=== PATIENT | female | born 1970 | race Asian ===

== ENCOUNTER 2017-12-29 19:07 | Emergency (ER) | payer OTHER ==
[~2017-12-29] VITALS: Ht 162.6 cm; Wt 62.1 kg
[~2017-12-29 19:07] MED LIST: ASPI-989 PO; CEVI30CA4 PO; HYDR200T80 PO; LISI2.5T48 PO; SERT50TA12 PO; SIMV40TA5 PO
[2017-12-29 19:14] VITALS: BP_SYST 139
[2017-12-29] MEDS ORDERED: ASPIRIN 81 MG TAB.CHEW PO ONE (19:15)
[2017-12-29 19:37] LABS: BASOPHILS # (AUTO) 0.1 K/uL (0.0-0.2); EOSINOPHILS # (AUTO) 0.3 K/uL (0.0-0.4); EOSINOPHILS % (AUTO) 4.1 % (0.0-4.0); HEMATOCRIT 34.5 % (36-48); HEMOGLOBIN 10.7 g/dL (12.0-16.0); LYMPHOCYTES # (AUTO) 2.7 K/uL (1.0-5.5); LYMPHOCYTES % (AUTO) 37.8 % (20.5-51.5); MEAN CORPUSCULAR HEMOGLOBIN 21 pg (27-31); MEAN CORPUSCULAR HGB CONC 31 % (32-36); MEAN CORPUSCULAR VOLUME 68 fL (79.0-98.0); MONOCYTES # (AUTO) 0.6 K/uL (0.0-1.0); MONOCYTES % (AUTO) 8.1 % (1.7-9.3); NEUTROPHILS # (AUTO) 3.3 K/uL (1.8-7.7); PLATELET COUNT (AUTO) 231 K/uL (130-430); RED BLOOD CELL COUNT(AUTO) 5.06 MIL/uL (4.2-6.2); RED CELL DISTRIBUTION WIDTH 13.5 % (9.0-15.0)
[2017-12-29 19:43] LABS: CALCIUM 9.4 mg/dL (8.4-11.0); CREATININE 0.75 mg/dL (0.55-1.30); POTASSIUM 3.5 mmol/L (3.5-5.1)
[2017-12-29 19:48] LABS: ALBUMIN 4.5 g/dL (3.4-4.8); TOTAL BILIRUBIN 0.5 mg/dL (0.0-1.0)
[2017-12-29 19:54] LABS: PROTHROMBIN TIME 9.9 SECS (9.5-12.5)
[2017-12-29] MEDS ORDERED: NACL 0.9% 1,000 ML IV ONE (20:15)
[2017-12-29] MEDS ORDERED: fentaNYL CITRATE/PF 100 MCG/2 ML AMP IVP ONE (20:15)
[2017-12-29] MEDS ORDERED: LORazepam 2 MG/ML VIAL (FOR ER USE) IVP ONE (20:15)
[2017-12-29 21:24] VITALS: BP_SYST 124
== END 2017-12-29 21:24 | disposition home or self-care (01) ==
LOC: SED 19:07
DX: F41.9 Anxiety disorder, unspecified (principal); R07.89 Other chest pain; I10 Essential (primary) hypertension; E78.00 Pure hypercholesterolemia, unspecified; M79.7 Fibromyalgia; Z86.73 Personal history of transient ischemic attack (TIA), and cerebral infarction without residual deficits; Z79.899 Other long term (current) drug therapy
CPT/HCPCS: 36415; 71045; 80053; 82550; 83880; 84484; 85025; 85610; 85730; 93005; 96374; 96375; 99285; J2060; J3010; J7030

== ENCOUNTER 2021-01-25 08:32 | Emergency (ER) | payer OTHER ==
[~2021-01-25] VITALS: Ht 162.6 cm; Wt 63.5 kg
[~2021-01-25 08:32] MED LIST changes: +SERT-436 PO; -SERT50TA12 PO; +SIMV-46 PO; -SIMV40TA5 PO
--- NOTE | 2021-01-25 08:35 | NUR ---
Pt came into ER with complaint of right sided facial and arm numbness approximatley 0730 while driving to work. Pt is AAOX4 speaking full sentences breathing is even and unlabored. Pt has history of CVA. Pt complains of chest pressure and left sided pain 6/10. Pt has elevated blood pressure 188/105. Vital signs holding. Pt is in gurney attached to monitor.
--- NOTE | 2021-01-25 08:35 | NUR ---
Placed in room 1 . Placed on teletypesetter monitor, blood pressure machine and pulse oximeter. To gown for exam. Side rails up. Report given to ELVI Disla.
--- NOTE | 2021-01-25 08:50 | NUR ---
# 18 gauge angiocath placed to RAC. Use of asceptic technique. Opsite placed over site. Blood return noted. Blood for lab drawn from site. Flushed with 10 cc of normal saline. No evidence of infiltration noted. Patient tolerated well.
--- NOTE | 2021-01-25 08:50 | NUR ---
EKG complete, Accu check complete 92.
--- NOTE | 2021-01-25 08:50 | NUR ---
Blood collected and sent to lab.
--- NOTE | 2021-01-25 08:57 | NUR ---
ER at bedside examining patient.
--- NOTE | 2021-01-25 08:58 | NUR ---
Code stroke called by Dr. Hall
--- NOTE | 2021-01-25 08:59 | NUR ---
Patient transported to radiology via gurney, accompanied by noa.
[2021-01-25 09:05] VITALS: BP_SYST 197
--- NOTE | 2021-01-25 09:05 | NUR ---
Pt back from CT.
--- NOTE | 2021-01-25 09:07 | NUR ---
# 2- gauge angiocath placed to LFA. Use of asceptic technique. Opsite placed over site. Blood return noted. Blood for lab drawn from site. Flushed with 10 cc of normal saline. No evidence of infiltration noted. Patient tolerated well.
--- NOTE | 2021-01-25 09:10 | NUR ---
Neuro consult at bedside Dr. Jones.
--- NOTE | 2021-01-25 09:20 | NUR ---
Code stroke all clear.
--- NOTE | 2021-01-25 09:26 | NUR ---
X-ray at bedside.
--- NOTE | 2021-01-25 09:38 | NUR ---
Pt resting in gurney vital signs holding. Breathing is even and unlabored.
[2021-01-25] MEDS ORDERED: ASPIRIN 81 MG TAB.CHEW PO ONE (09:45)
[2021-01-25] MEDS ORDERED: NITROGLYCERIN 0.4 MG TAB.SUBL SL ONE (09:45)
[2021-01-25 09:53] LABS: CALCIUM 9.5 mg/dL (8.4-11.0); CREATININE 0.86 mg/dL (0.55-1.30); POTASSIUM 3.4 mmol/L (3.5-5.1)
--- NOTE | 2021-01-25 09:54 | NUR ---
Second Nitro SL given per MD order. for unrelieved chest pain.
[2021-01-25 09:58] LABS: ALBUMIN 4.1 g/dL (3.4-4.8); TOTAL BILIRUBIN 0.6 mg/dL (0.0-1.0)
--- NOTE | 2021-01-25 09:59 | NUR ---
Pt chest pain releived.
[2021-01-25 10:00] LABS: BASOPHILS # (AUTO) 0.1 K/uL (0.0-0.2); EOSINOPHILS # (AUTO) 0.6 K/uL (0.0-0.4); HEMOGLOBIN 11.3 g/dL (12.0-16.0); LYMPHOCYTES % (AUTO) 41.7 % (20.5-51.5); MEAN CORPUSCULAR HEMOGLOBIN 21 pg (27-31); MEAN CORPUSCULAR HGB CONC 31 % (32-36); MEAN CORPUSCULAR VOLUME 67 fL (79.0-98.0); MONOCYTES # (AUTO) 0.5 K/uL (0.0-1.0); MONOCYTES % (AUTO) 6.6 % (1.7-9.3); NEUTROPHILS % (AUTO) 42.7 % (40.0-70.0); PLATELET COUNT (AUTO) 210 K/uL (130-430); RED BLOOD CELL COUNT(AUTO) 5.35 MIL/uL (4.2-6.2); RED CELL DISTRIBUTION WIDTH 14.8 % (9.0-15.0); WHITE BLOOD COUNT (AUTO) 7.1 K/uL (4.8-10.8)
--- NOTE | 2021-01-25 11:41 | NUR ---
RT at bedside.
[2021-01-25] MEDS ORDERED: levalbuterol HCL 0.63 MG/3 ML VIAL.NEB INH ONE (11:45)
[2021-01-25] MEDS ORDERED: KETOROLAC TROMETHAMINE 15 MG VIAL IVP ONE (11:45)
[2021-01-25 12:54] VITALS: BP_SYST 136
== END 2021-01-25 12:54 | disposition home or self-care (01) ==
LOC: SED 08:32
DX: R42 Dizziness and giddiness (principal); R20.0 Anesthesia of skin; R07.89 Other chest pain; I10 Essential (primary) hypertension; Z79.899 Other long term (current) drug therapy
CPT/HCPCS: 36415; 70450; 71045; 76376; 80053; 82962; 84484; 85025; 93005; 94640; 96374; 99285; J1885; J7614